=== PATIENT | female | born 1960 | race Caucasian/White ===

== ENCOUNTER 2022-08-14 14:53 | Outpatient (CLI) | payer BC ==
[2022-08-14] MEDS ORDERED: iohexol 350MG/ML 100ml bottle IV ONE (15:16)
== END 2022-08-14 23:59 | disposition home or self-care (01) ==
LOC: RAD 14:53
PROVIDERS: ATTEND Family Medicine
DX: J98.11 Atelectasis (principal); R79.1 Abnormal coagulation profile; R06.02 Shortness of breath; K76.0 Fatty (change of) liver, not elsewhere classified; M47.814 Spondylosis without myelopathy or radiculopathy, thoracic region; Z90.49 Acquired absence of other specified parts of digestive tract
CPT/HCPCS: 71275; J3490; Q9967